=== PATIENT | male | born 1995 ===

== ENCOUNTER 2017-03-31 19:23 | Emergency (ER) | payer OTHER ==
[~2017-03-31] VITALS: Ht 167.6 cm; Wt 69.3 kg
[~2017-03-31 19:23] MED LIST: AMOX500T3 PO; [UNRECOGNIZED DRUG - OTHER] PO
[2017-03-31 19:30] VITALS: TEMP 37.3; Ht 167.6 cm; Wt 69.3 kg
[2017-03-31] MEDS ORDERED: RABIES IMMUNE GLOBULIN (HUMAN) 150 INTER.UNIT/ML 2 ML VIAL IM. ONE (19:45)
[2017-03-31] MEDS ORDERED: RABIES VACCINE (IMOVAX) HUMAN DIPL CELL 2.5 INTER.UNIT/ML SYR IM. ONE (19:45)
--- NOTE | 2017-03-31 20:43 | EMERGENCY ROOM VISIT NOTE ---
ED Visit Note First contact with patient: 19:33 CHIEF COMPLAINT: Possible bat bite HISTORY OF PRESENT ILLNESS: This 21-year-old male patient presents to the emergency department ambulatory for evaluation of a possible bat bite on his left leg. The patient states that 2 days ago, he woke up with a bat in his room. He reports that there were 3 vicente on his left lower leg and he is concerned that this may be a bite. He has not previously received rabies vaccinations. He believes his tetanus status is up-to-date. He denies any pain or any other symptoms. REVIEW OF SYSTEMS: A 6 system review of systems was completed with positives and pertinent negatives listed in the HPI. ALLERGIES: No known drug allergies MEDICATIONS: No chronic medications PMH: No significant past medical history.. SOCIAL HISTORY: The patient is a [employer] student and lives locally with roommates.. PHYSICAL EXAM: Vital Signs: Reviewed Nurse's notes, vital signs stable. GENERAL : This is a 21-year-old male, in no acute distress, well-developed, well- nourished. HEAD: Atraumatic, without temporal or scalp tenderness. EYES: PERRLA, EOMI, no discharge or injection. SKIN: There are 3 small erythematous abrasions on the left lower leg which could be consistent with an animal bite. Capillary refill less than 2 seconds. NEUROLOGICAL: Alert and oriented to person place and time. Normal sensation to light and sharp touch. MUSCULOSKELETAL: Motor functions grossly intact of the left leg. Full range of motion. There is no significant tenderness of the leg. EMERGENCY DEPARTMENT COURSE: I examined the patient. The patient was given RIG 20 Units/kg. The patient was given Imovax 2.5 units IM. The patient was observed for 20 minutes with no reaction. The patient was discharged home in stable condition. Medication reconciliation: I attest that I have personally reviewed the patient 's current medication list. Blood pressure screening: Patient was found to have normal blood pressure on screening and does not require follow-up. DIAGNOSIS: Rabies prophylaxis Current/Historical Medications Scheduled Protein (Whey Protein), 40 MG PO PRN Allergies Coded Allergies: No Known Allergies (Unverified , 06/11/16) Vital Signs Date Time Temp Pulse Resp B/P (MAP) Pulse Ox O2 Delivery O2 Flow Rate FiO2 03/31/17 20:57 84 18 132/55 96 03/31/17 19:30 37.3 95 16 124/69 96 Room Air Medications Administered Medications (Trade) Dose Ordered Sig/Cayla Route Start Time Stop Time Status Last Admin Dose Admin Rabies Immune Globulin (Imogam Rabies Inj) 1,380 interunit ONCE ONCE IM. 03/31/17 19:45 03/31/17 19:46 DC 03/31/17 20:35 1,380 INTERUNIT Rabies Vaccine Human Diploid Cell (Imovax Rabies) 2.5 interunit ONCE ONCE IM. 03/31/17 19:45 03/31/17 19:46 DC 03/31/17 20:33 2.5 INTERUNIT Departure Information Impression Primary Impression: Need for post exposure prophylaxis for rabies Dispostion Home / Self-Care Condition GOOD Referrals [facility] (PCP) Patient Instructions My [facility] Additional Instructions Today is day 0. Return to the ER on days 3, 7, and 14 for subsequent vaccinations. Dates to return: 04/03/17 04/07/17 04/14/17 Return sooner or follow up with your family doctor for signs of infection ( increased redness, discharge, fever) or for complications with the vaccine series.
[2017-03-31 20:57] VITALS: BP 132/55; PULSE 84; O2SAT 96
[2017-05-24] MEDS ORDERED: PROT1POW7 PO (19:45)
== END 2017-03-31 20:58 | disposition home or self-care (01) ==
LOC: C.EDB 19:25 → C.EDD 20:58
DX: Z20.3 Contact with and (suspected) exposure to rabies (principal); Z23 Encounter for immunization

== ENCOUNTER 2017-04-03 20:31 | Emergency (ER) | payer OTHER ==
[~2017-04-03] VITALS: Ht 167.6 cm; Wt 69.8 kg
[2017-04-03 20:49] VITALS: BP 111/57; PULSE 60; TEMP 36.8; O2SAT 100; Ht 167.6 cm; Wt 69.8 kg
[2017-04-03] MEDS ORDERED: RABIES VACCINE (IMOVAX) HUMAN DIPL CELL 2.5 INTER.UNIT/ML SYR IM. ONE (21:15)
--- NOTE | 2017-04-03 21:21 | EMERGENCY ROOM VISIT NOTE ---
ED Visit Note First contact with patient: 21:05 CHIEF COMPLAINT: Rabies prophylaxis HISTORY OF PRESENT ILLNESS: This 21-year-old male patient presents to the emergency department ambulatory for their second rabies shot. The patient has not had any complications from the previous injection. They deny any other complaints. REVIEW OF SYSTEMS: A 6 system review of systems was completed with positives and pertinent negatives listed in the HPI. ALLERGIES: No known drug allergies MEDICATIONS: No chronic medications PMH: Unchanged from previous visit. PHYSICAL EXAM: Vital Signs: Reviewed Nurse's notes, vital signs stable. GENERAL: This is a 21-year-old male, in no acute distress, well-developed, well- nourished. HEAD: Atraumatic, without temporal or scalp tenderness. EYES: PERRLA, EOMI, no discharge or injection. SKIN: Normal. NEUROLOGICAL: Alert and cooperative. Sensory and motor functions grossly intact. EMERGENCY DEPARTMENT COURSE: I examined the patient. The patient was given Imovax 2.5 units IM. The patient was observed for 20 minutes with no reaction. The patient was discharged home in stable condition. DIAGNOSIS: Rabies prophylaxis DISCHARGE INSTRUCTIONS: Continue vaccination schedule as directed. Return for any complications. Current/Historical Medications Scheduled Protein (Whey Protein), 40 MG PO PRN Allergies Coded Allergies: No Known Allergies (Unverified , 04/03/17) Vital Signs Date Time Temp Pulse Resp B/P (MAP) Pulse Ox O2 Delivery O2 Flow Rate FiO2 04/03/17 20:49 36.8 60 16 111/57 100 Room Air Medications Administered Medications (Trade) Dose Ordered Sig/Cayla Route Start Time Stop Time Status Last Admin Dose Admin Rabies Vaccine Human Diploid Cell (Imovax Rabies) 2.5 interunit ONCE ONCE IM. 04/03/17 21:15 04/03/17 21:16 DC 04/03/17 21:14 2.5 INTERUNIT Departure Information Impression Primary Impression: Rabies, need for prophylactic vaccination against Dispostion Home / Self-Care Condition GOOD Referrals [facility] (PCP) Patient Instructions My [facility] Additional Instructions Continue vaccination schedule as directed. Return for any complications.
[2017-05-24] MEDS ORDERED: PROT1POW7 PO (19:45)
== END 2017-04-03 21:32 | disposition home or self-care (01) ==
LOC: C.EDB 20:32 → C.EDD 21:32
DX: Z23 Encounter for immunization (principal); Z20.3 Contact with and (suspected) exposure to rabies

== ENCOUNTER 2017-04-07 19:10 | Emergency (ER) | payer OTHER ==
[~2017-04-07] VITALS: Ht 167.6 cm; Wt 69.9 kg
[2017-04-07 19:19] VITALS: BP 105/56; PULSE 55; TEMP 36.8; O2SAT 98; Ht 167.6 cm; Wt 69.9 kg
[2017-04-07] MEDS ORDERED: RABIES VACCINE (IMOVAX) HUMAN DIPL CELL 2.5 INTER.UNIT/ML SYR IM. ONE (19:45)
--- NOTE | 2017-04-09 12:20 | EMERGENCY ROOM VISIT NOTE ---
ED Visit Note First contact with patient: 19:23 CHIEF COMPLAINT: Rabies immunization. HISTORY OF PRESENT ILLNESS: Mr. Ziegler is a 21-year-old male who ambulates into the ED requesting his third rabies immunization after being bite by a bat. He reports he's had no reactions to his previous immunizations and he is feeling well today. He denies fevers, chills, sweats, headaches, neck pain, joint pain, shortness of breath, cough, upper respiratory tract symptoms, abdominal pain, nausea, vomiting. REVIEW OF SYSTEMS: As noted above in History of Present Illness. 8 body systems were reviewed with this patient and found to be negative unless noted above otherwise. PMH: Patient denies. CURRENT MEDICATION: Patient denies. ALLERGIES TO MEDICATION: Patient denies. SOCIAL HISTORY: Patient is not currently employed; he feels safe in his home environment; he denies tobacco; he admits to alcohol use. PHYSICAL EXAM: Vital Signs: Date Time Temp Pulse Resp B/P (MAP) Pulse Ox O2 Delivery O2 Flow Rate FiO2 04/07/17 19:19 36.8 55 18 105/56 98 Room Air GENERAL: 21-year-old male in no acute distress, nontoxic-appearing, afebrile and hemodynamically stable. NEUROLOGICAL: Awake, alert and oriented to person, place and time. Answering questions appropriately and following commands. EMERGENCY DEPARTMENT COURSE: Patient is assessed as noted above. Patient was given 2.5 units of rabies immunization IM. Patient was educated about today's findings and instructed on his treatment plan ; he verbalized understanding and agreement with this plan. CLINICAL IMPRESSION: Post exposure rabies prophylaxis. DISPOSITION: Patient discharged to home in stable condition; prior to discharge he was reassessed and reported that he felt the same. PLAN: Patient was educated on symptoms of rabies and side effect of rabies immunizations. Patient was encouraged to keep his upcoming schedule for his additional immunizations. Patient was encouraged to return the ED for any symptoms of rabies or side effects of rabies immunizations.
[2017-05-24] MEDS ORDERED: PROT1POW7 PO (19:45)
== END 2017-04-07 20:10 | disposition home or self-care (01) ==
LOC: C.EDB 19:10 → C.EDD 20:10
DX: Z20.3 Contact with and (suspected) exposure to rabies (principal); Z23 Encounter for immunization

== ENCOUNTER 2017-04-14 17:42 | Emergency (ER) | payer OTHER ==
[~2017-04-14] VITALS: Ht 170.2 cm; Wt 71.3 kg
[2017-04-14 17:48] VITALS: BP 122/68; PULSE 86; TEMP 36.9; O2SAT 99; Ht 170.2 cm; Wt 71.3 kg
[2017-04-14] MEDS ORDERED: RABIES VACCINE (IMOVAX) HUMAN DIPL CELL 2.5 INTER.UNIT/ML SYR IM. ONE ×2 (17:55→18:00)
--- NOTE | 2017-04-14 17:59 | EMERGENCY ROOM VISIT NOTE ---
History First contact with patient: 17:50 Chief Complaint: RABIES VACCINE REPEAT VISIT Stated Complaint: RABIES History of Present Illness The patient is a 21 year old male who presents to the Emergency Room for his fourth and final Imovax injection. The patient believes that he was exposed to a bat was flying around his apartment 2 weeks ago. The patient presented to the emergency department for the rabies postexposure prophylaxis series. He denies any adverse reactions to the injections. The patient has not had any prior rabies immunization series. The patient also denies any significant health history. Review of Systems 6 system review was performed and was negative except for pertinent positives and negatives as indicated in history of present illness Past Medical/Surgical History Medical Problems: (1) No significant past medical history Surgical Problems: (1) No history of previous surgery Family History No significant family history Social History Smoking Status: Never Smoker Alcohol Use: occasionally Drug Use: none Marital Status: single Housing Status: lives with roommate Occupation Status: [employer] student Current/Historical Medications Scheduled Protein (Whey Protein), 40 MG PO PRN Physical Exam Vital Signs Date Time Temp Pulse Resp B/P (MAP) Pulse Ox O2 Delivery O2 Flow Rate FiO2 04/14/17 17:48 36.9 86 18 122/68 99 Room Air Physical Exam CONSTITUTIONAL: Healthy and well nourished. HEENT: No scleral icterus or conjunctival injection. NECK: Full active range of motion without discomfort. INTEGUMENTARY: No rash or other significant dermatologic conditions noted. NEUROLOGIC: No focal neurologic deficits noted. Medical Decision & Procedures ED Course Patient history and physical exam were performed. Nurse's notes were reviewed. Vital signs were reviewed and were normal. The patient was administered Imovax IM without adverse reaction. The patient was advised that if he has any potential rabies exposure in the future, he should advise his healthcare provider that he has undergone this immunization series. The patient was happy with plan of care, and denied any pain at the time of discharge. Medical Decision Blood Pressure Screening Patient's blood pressure: Normal blood pressure Impression Primary Impression: Need for prophylactic vaccination against rabies Departure Information Dispostion Home / Self-Care Forms HOME CARE DOCUMENTATION FORM, IMPORTANT VISIT INFORMATION Patient Instructions My [facility] Additional Instructions If you have any potential rabies exposure in the future, advise your health care provider that you have already undergone this immunization series.
[2017-05-24] MEDS ORDERED: PROT1POW7 PO (19:45)
== END 2017-04-14 18:00 | disposition home or self-care (01) ==
LOC: C.EDB 17:43 → C.EDD 18:00
DX: Z20.3 Contact with and (suspected) exposure to rabies (principal); Z23 Encounter for immunization

== ENCOUNTER 2017-05-24 20:48 | Emergency (ER) | payer OTHER ==
[~2017-05-24] VITALS: Ht 167.6 cm; Wt 69.2 kg
[~2017-05-24 20:48] MED LIST changes: -AMOX500T3 PO; +PROT1POW7 PO; -[UNRECOGNIZED DRUG - OTHER] PO
[2017-05-24 20:55] VITALS: TEMP 39; Ht 167.6 cm; Wt 69.2 kg
[2017-05-24] MEDS ORDERED: SODIUM CHLORIDE 0.9% 1000ML 1,000 ML IV STA (21:49)
[2017-05-24] MEDS ORDERED: KETOROLAC TROMETHAMINE 30 MG/ML VIAL IV STA (21:49)
--- NOTE | 2017-05-24 22:06 | EMERGENCY ROOM VISIT NOTE ---
History Report prepared by Bouchra: Fracisco Mooney Under the Supervision of: Dr. Cesar Graham D.O. First contact with patient: 21:38 Chief Complaint: ILLNESS Stated Complaint: SEVERE HEADACHE, SWOLLEN GLAND, COUGH History of Present Illness The patient is a 21 year old male who presents to the Emergency Room with complaints of a worsening illness starting yesterday. The patient is currently rating his discomfort as a 7/10 in severity. The patient states that he has a headache, fever, cough, diarrhea, back pain, loss of appetite, and inability to sleep. The patient states that he has not seen anyone for these symptoms, and he is currently taking over the counter medications. The patient denies any recent travel outside of the country. Source of History: patient Onset: yesterday Position: other (global) Symptom Intensity: 7/10 Quality: other (illness) Timing: worsening Associated Symptoms: + fevers, + headache, + cough, + back pain, + diarrhea Review of Systems See HPI for pertinent positives & negatives. A total of 10 systems reviewed and were otherwise negative. Past Medical & Surgical Medical Problems: (1) No significant past medical history Surgical Problems: (1) No history of previous surgery Family History No significant family history Social History Smoking Status: Never Smoker Alcohol Use: occasionally Drug Use: none Marital Status: single Housing Status: lives with roommate Occupation Status: [employer] Current/Historical Medications Scheduled Azithromycin (Azithromycin), 0 PO UD Protein (Whey Protein), 40 MG PO PRN Scheduled PRN Guaifenesin Ext Rel (Mucinex Ext Rel), 600 MG PO Q12 PRN for CONGESTION Allergies Coded Allergies: No Known Allergies (Unverified , 04/14/17) Physical Exam Vital Signs Date Time Temp Pulse Resp B/P (MAP) Pulse Ox O2 Delivery O2 Flow Rate FiO2 05/25/17 00:20 70 16 122/70 98 05/24/17 22:28 71 16 109/73 99 Room Air 05/24/17 20:55 39.0 103 18 107/51 98 Room Air Physical Exam GENERAL: Patient is awake, alert, and in no acute distress. Patient is resting comfortably and showing no signs of anxiety EYES: The conjunctivae are clear. The pupils are round and reactive. EARS, NOSE, MOUTH AND THROAT: TMs are clear bilaterally. Mucous membranes are moist. Posterior oropharynx is clear and has no significant swelling or exudate. NECK: The neck is nontender and supple. RESPIRATORY: Normal respiratory effort is noted there is no evidence of wheezing rhonchi or rales CARDIOVASCULAR: Regular rate and rhythm noted there no murmurs rubs or gallops normal S1 normal S2 GASTROINTESTINAL: The abdomen is soft. Bowel sounds are present in all quadrants. Abdomen is nontender MUSCULOSKELETAL/EXTREMITIES: There is no evidence of gross deformity full range of motion is noted in the hips and shoulders SKIN: There is no obvious evidence of any rash. There are no petechiae, pallor or cyanosis noted. NEUROLOGIC: Patient is awake alert and oriented x3 Medical Decision & Procedures ER Provider Diagnostic Interpretation: Radiology results as stated below per my review and radiologist interpretation: CHEST ONE VIEW PORTABLE CLINICAL HISTORY: Abdominal pain. COMPARISON STUDY: No previous studies for comparison. FINDINGS: No lucency is identified under the hemidiaphragms to suggest pneumoperitoneum on this exam. There is evidence for distal right clavicular resection/resorption. Lung volumes are normal. Lungs are clear. No pneumothorax or pleural effusion is present. Pulmonary vascularity is normal. Cardiomediastinal silhouette is normal. IMPRESSION: 1. No acute cardiopulmonary findings. 2. Evidence for distal right clavicular resection or resorption. Electronically signed by: David Grijalva M.D. 05/24/2017 10:20 PM Dictated Date/Time: 05/24/2017 10:18 PM Laboratory Results 05/24/17 22:00 Red Blood Count 5.27, Mean Corpuscular Volume 87.7, Mean Corpuscular Hemoglobin 29.4, Mean Corpuscular Hemoglobin Concent 33.5, Mean Platelet Volume 9.3, Neutrophils (%) (Auto) 80.0, Lymphocytes (%) (Auto) 7.6, Monocytes (%) (Auto) 11.8, Eosinophils (%) (Auto) 0.3, Basophils (%) (Auto) 0.1, Neutrophils # (Auto ) 8.16, Lymphocytes # (Auto) 0.78, Monocytes # (Auto) 1.20, Eosinophils # (Auto ) 0.03, Basophils # (Auto) 0.01 05/24/17 22:00 Test 05/24/17 22:00 White Blood Count 10.20 K/uL (4.8-10.8) Red Blood Count 5.27 M/uL (4.7-6.1) Hemoglobin 15.5 g/dL (14.0-18.0) Hematocrit 46.2 % (42-52) Mean Corpuscular Volume 87.7 fL (80-100) Mean Corpuscular Hemoglobin 29.4 pg (25-34) Mean Corpuscular Hemoglobin Concent 33.5 g/dl (32-36) Platelet Count 221 K/uL (130-400) Mean Platelet Volume 9.3 fL (7.4-10.4) Neutrophils (%) (Auto) 80.0 % Lymphocytes (%) (Auto) 7.6 % Monocytes (%) (Auto) 11.8 % Eosinophils (%) (Auto) 0.3 % Basophils (%) (Auto) 0.1 % Neutrophils # (Auto) 8.16 K/uL (1.4-6.5) Lymphocytes # (Auto) 0.78 K/uL (1.2-3.4) Monocytes # (Auto) 1.20 K/uL (0.11-0.59) Eosinophils # (Auto) 0.03 K/uL (0-0.5) Basophils # (Auto) 0.01 K/uL (0-0.2) RDW Standard Deviation 41.3 fL (36.4-46.3) RDW Coefficient of Variation 12.8 % (11.5-14.5) Immature Granulocyte % (Auto) 0.2 % Immature Granulocyte # (Auto) 0.02 K/uL (0.00-0.02) Erythrocyte Sedimentation Rate 21 mm/hr (0-14) Anion Gap 4.0 mmol/L (3-11) Est Creatinine Clear Calc Drug Dose 88.6 ml/min Estimated GFR () 100.3 Estimated GFR (Non- 86.5 BUN/Creatinine Ratio 9.8 (10-20) Calcium Level 9.3 mg/dl (8.5-10.1) Total Bilirubin 0.5 mg/dl (0.2-1) Direct Bilirubin 0.1 mg/dl (0-0.2) Aspartate Amino Transf (AST/SGOT) 35 U/L (15-37) Alanine Aminotransferase (ALT/SGPT) 36 U/L (12-78) Alkaline Phosphatase 80 U/L (45-117) C-Reactive Protein 2.53 mg/dl (0-0.29) Total Protein 7.9 gm/dl (6.4-8.2) Albumin 4.1 gm/dl (3.4-5.0) Lipase 54 U/L (73-393) Monoscreen NEG (NEG) Influenza Type A (RT-PCR) Neg for Influ A (NEG) Influenza Type A Antigen Neg for Influ A (NEG) Influenza Type B Antigen Neg for Influ B (NEG) Influenza Type B (RT-PCR) Neg for Influ B (NEG) Laboratory results per my review. Medications Administered Medications (Trade) Dose Ordered Sig/Cayla Route Start Time Stop Time Status Last Admin Dose Admin Ketorolac Tromethamine (Toradol Inj) 30 mg NOW STAT IV 05/24/17 21:49 05/24/17 21:51 DC 05/24/17 21:49 30 MG Sodium Chloride 1,000 ml @ 999 mls/hr Q1H1M STAT IV 05/24/17 21:49 05/24/17 22:49 DC 05/24/17 21:49 999 MLS/HR Prednisone (PredniSONE TAB) 60 mg NOW STAT PO 05/25/17 00:04 05/25/17 00:05 DC 05/25/17 00:04 60 MG Azithromycin (Zithromax Tab) 500 mg NOW ONCE PO 05/25/17 00:15 05/25/17 00:16 DC 05/25/17 00:15 500 MG ED Course 2137: The patient was evaluated in room C10. A complete history and physical examination were performed. 2148: NSS 1,000 ml @ 999 mls/hr IV, Toradol Inj 30mg IV 0001: Upon reevaluation, the patient is doing well . I discussed the results and treatment plan with him. He verbalized agreement of the treatment plan. He was discharged home. 0004: Prednisone 60mg PO 0015: Azithromycin 500mg PO Medical Decision Differential diagnosis: Etiologies such as viral syndrome, otitis, pharyngitis, pneumonia, influenza, meningitis, urinary tract infection, sepsis, bacteremia, as well as others were entertained. Nursing notes reviewed The patient is a 21-year-old male who presented to the emergency department with sore throat and fever. The patient's history and physical exam appeared to be consistent with a nonspecific pharyngitis. He was treated with medications in the emergency department and felt much better. I discussed the patient's laboratory and radiographic studies with him. He was encouraged to rest and avoid any strenuous activity. He was also encouraged to continue all medications as prescribed and continue using Motrin and Tylenol as directed for pain. He was also encouraged to return the emergency Department immediately if symptoms change worsen or need arises. Impression Primary Impression: Fever Additional Impression: Pharyngitis Scribe Attestation The scribe's documentation has been prepared under my direction and personally reviewed by me in its entirety. I confirm that the note above accurately reflects all work, treatment, procedures, and medical decision making performed by me. Departure Information Dispostion Home / Self-Care Prescriptions Azithromycin (Azithromycin) 1 Pkt Tab 0 PO UD, #6 PKT Prov: Cesar Graham, DO 05/25/17 Referrals No Doctor, Assigned (PCP) Forms HOME CARE DOCUMENTATION FORM, IMPORTANT VISIT INFORMATION, WORK / SCHOOL INSTRUCTIONS Patient Instructions ED Strep Pharyngitis [place], My [facility] Additional Instructions Continue using Motrin and Tylenol as directed for pain. Rest and avoid any strenuous activity. Drink plenty clear liquids. Follow-up with [facility] this week for reevaluation. Problem Qualifiers Primary Impression: Fever Fever type: unspecified Qualified Codes: R50.9 - Fever, unspecified Additional Impression: Pharyngitis Pharyngitis/tonsillitis etiology: unspecified etiology Qualified Codes: J02.9 - Acute pharyngitis, unspecified
[2017-05-24 22:10] LABS: BASO % 0.1 %; BASO ABS # 0.01 K/uL (0-0.2); COMPLETE YES; EOS % 0.3 %; HEMATOCRIT 46.2 % (42-52); IG% 0.2 %; LYMPH % 7.6 %; LYMPH ABS # 0.78 K/uL (1.2-3.4); MEAN CELL VOLUME 87.7 fL (80-100); MEAN CORPUSCULAR HEMOGLOBIN 29.4 pg (25-34); MEAN CORPUSCULAR HGB CONC 33.5 g/dl (32-36); MEAN PLATELET VOLUME 9.3 fL (7.4-10.4); MONO % 11.8 %; PLATELET COUNT 221 K/uL (130-400); RED BLOOD COUNT 5.27 M/uL (4.7-6.1)
[2017-05-24] MEDS ORDERED: GUAI1TAB55 PO (22:19)
--- NOTE | 2017-05-24 22:21 | DIAGNOSTIC IMAGING REPORT ---
CHEST ONE VIEW PORTABLE CLINICAL HISTORY: Abdominal pain. COMPARISON STUDY: No previous studies for comparison. FINDINGS: No lucency is identified under the hemidiaphragms to suggest pneumoperitoneum on this exam. There is evidence for distal right clavicular resection/resorption. Lung volumes are normal. Lungs are clear. No pneumothorax or pleural effusion is present. Pulmonary vascularity is normal. Cardiomediastinal silhouette is normal. IMPRESSION: 1. No acute cardiopulmonary findings. 2. Evidence for distal right clavicular resection or resorption. Electronically signed by: David Grijalva M.D. 05/24/2017 10:20 PM Dictated Date/Time: 05/24/2017 10:18 PM
[2017-05-24 22:31] LABS: BUN/CREATININE RATIO 9.8 (10-20); C-REACTIVE PROTEIN 2.53 mg/dl (0-0.29); CALCIUM 9.3 mg/dl (8.5-10.1); CREATININE 1.2 mg/dl (0.60-1.40); POTASSIUM 3.8 mmol/L (3.5-5.1)
[2017-05-25 00:04] LABS: INFLUENZA A PCR Neg for Influ A (NEG); INFLUENZA B PCR Neg for Influ B (NEG)
[2017-05-25] MEDS ORDERED: ZPAK PO (00:06)
[2017-05-25] MEDS ORDERED: AZITHROMYCIN 250 MG TAB PO ONE (00:15)
[2017-05-25 00:20] VITALS: BP 122/70; PULSE 70; O2SAT 98
== END 2017-05-25 00:20 | disposition home or self-care (01) ==
LOC: C.EDB 20:49 → C.EDC 05-25 00:20
DX: J02.9 Acute pharyngitis, unspecified (principal)